=== PATIENT | male | born 1975 | race Caucasian/White ===

== ENCOUNTER 2022-03-12 19:13 | Emergency (ER) | payer BC, SELFPAY ==
[2022-03-12 19:19] VITALS: BP 116/80; PULSE 80; RESP 18; TEMP 36.5; O2SAT 96; BMI 32.1
--- NOTE | 2022-03-12 20:23 | ED.NURSE ---
2015-Pt refused Adacel. Education provided, Pt verbalizes risks of refusal. informed.
--- NOTE | 2022-03-12 20:30 | ED.GENADULT ---
HPI - General Adult General Date Seen: 03/12/22 Chief complaint: Laceration/Wound Stated complaint: RIGHT HAND INJURY/CUT Time Seen by Provider: 03/12/22 19:24 Source: patient History of Present Illness HPI narrative: Patient is a 46-year-old male with a laceration on his right palm sustained by a tool that had strong hinge on it which snapped onto his hand. He has a superficial laceration on the back of his hand as well. He denies any numbness, loss of function. No difficulty using his index finger. Unsure of his last tetanus. No other injuries or complaints. This happened just within the last hour. Related Data Home Medications Medication Instructions Recorded Confirmed No Known Home Medications 03/12/22 03/12/22 Allergies Allergy/AdvReac Type Severity Reaction Status Date / Time No Known Drug Allergies Allergy Verified 03/12/22 19:22 [facility] Social History Smoking Status: Current every day smoker How often do you have a drink containing alcohol: 4 or more times a week AUDIT-C Alcohol total score: 4 Non-prescribed substance use: denies use Exam Narrative: Exam Narrative: Vital signs reviewed. In general, an alert, well-appearing male. Examination of the right hand shows an L-shaped laceration which is 2 cm in total length, in the webspace between the 1st and 2nd fingers. He has full extension and flexion of the 2nd finger, full apposition, adduction, abduction of the thumb. Sensation is intact throughout the hand. He has a small very superficial abrasion over the thenar eminence and an abrasion over the dorsal aspect of the hand between the 1st and 2nd webspace. Skin: Warm dry well perfused. Const: Vital Signs, click to edit/add: Vital Signs - 24 hr 03/12/22 19:19 Temperature 97.7 F Pulse Rate [Right Pulse Oximeter] 80 Respiratory Rate 18 Blood Pressure [Le ft Upper Arm] 116/80 Pulse Oximetry 96 Documenting provider has reviewed patient's vital signs: yes Course Course Hospital Course: Procedure note: The L-shaped laceration on the palmar aspect of the hand was anesthetized using lidocaine with epinephrine. Wound was explored, it extends into the fatty tissues of the hand but I do not see any evidence of injury to deeper structures. No foreign body identified. I closed the wound using 5 0 nylon, a total of 6 superficial simple interrupted sutures were placed. He tolerated this well without immediate complication. A dressing was applied by the opto mechanical technician. Last tetanus was in 2000, we recommended updating this but he declined, saying that he did not want his pertussis or diphtheria updated, he only would agree to have the tetanus updated which is not available as a single vaccination. Suture removal in about 10 days, return for signs of infection. Vital Signs Vital signs: Initial Vital Signs Temperature 97.7 F 03/12/22 19:19 Temperature Source Temporal Artery Scan 03/12/22 19:19 Pulse Rate 80 03/12/22 19:19 Respiratory Rate 18 03/12/22 19:19 Blood Pressure 116/80 03/12/22 19:19 Blood Pressure Mean 92 03/12/22 19:19 Blood Pressure Position Sitting 03/12/22 19:19 Pulse Oximetry 96 03/12/22 19:19 Oxygen Delivery Method 03/12/22 19:19 Vital Signs Temperature 97.7 F 03/12/22 19:19 Pulse Rate 80 03/12/22 19:19 Respiratory Rate 18 03/12/22 19:19 Blood Pressure 116/80 03/12/22 19:19 Pulse Oximetry 96 03/12/22 19:19 Temperature 97.7 F 03/12/22 19:19 Pulse Rate 80 03/12/22 19:19 Respiratory Rate 18 03/12/22 19:19 Blood Pressure 116/80 03/12/22 19:19 Pulse Oximetry 96 03/12/22 19:19 Discharge Plan Discharge Clinical Impression: Laceration of right hand Patient Disposition: Home, Self-Care Condition: Improved Instructions: Laceration (ED) Additional Instructions: Suture removal in about 10 days. Return for signs of infection. Prescriptions: No Action No Known Home Medications 0RF Stand Alone Forms: MyHealth Info Instructions
== END 2022-03-12 20:19 | disposition home or self-care (01) ==
LOC: ED 20:09
PROVIDERS: Emergency Provider Emergency Medicine
DX: S61.411A Laceration without foreign body of right hand, initial encounter (principal); W27.8XXA Contact with other nonpowered hand tool, initial encounter
CPT/HCPCS: 12001; 99283

== ENCOUNTER 2024-10-01 22:30 | Emergency (ER) | payer BC, SELFPAY ==
--- OUTSIDE RECORDS SUMMARY | 2024-10-01 22:32 | XMS_ITS | Clinical Summary ---
Author Organization [facility] Address [address] [address] Care Team Providers Care Seat Installer Name Role Phone Unavailable Primary Care Provider Unavailabl e Source Comments You are receiving this document as you are listed as the primary care provider,follow-up provider, or the patient has been referred to you for consultation.This is in compliance with the Medicare and[facility] E[facility] Incentive Program,which states Providers who transition their patient to another setting of careor provider of care or refers their patient to another provider of care shouldprovide summary care record for each transition of care or referral. True Style Allergies Active Allergy Reactions Criticality Noted Date Comments Varenicline Other, see comments 12/19/2013 Amnesia, Mental status change Medications nicotine ([facility] NICOTINE POLACRILEX) 2 MG gumIndications:To bacco dependence (HRC) Take 1 Each by mouth as needed for Smoking Cessation (Take 1 each by mouth as needed for Smoking cessation.). 100 Each 9 Active nicotine ([employer] NICOTINE) 7 MG/24HR patchIndications: Tobacco dependence (HRC) Apply 1 Patch to skin every 24 hours. 28 Patch 6 9 Active ALBUterol sulfate HFA 108 (90 Base) MCG/ACT inhalerIndication s:Allergy-induced asthma, mild intermittent, uncomplicated (HRC) Inhale 1-2 Puffs every 4 hours as needed for Wheezing. 1 Each 3 Active hydrocortisone, Perianal, (PROCTOSOL-HC) 2.5 % rectal creamIndications: Inflamed Hemorrhoids Insert rectally two times a day. Indications: Inflamed Hemorrhoids 28 g 1 3 Active Active Problems Problem Noted Date Diagnosed Date Pilonidal cyst without abscess 05/21/2023 Pilonidal cyst 10/06/2019 Overview (10/06/2019): Added automatically from request for surgery [id number] Raynaud's phenomenon without gangrene 10/06/2019 Night sweats 10/06/2019 Overview (10/06/2019): [id number], 09/2019 reported soaking night sweats monthly, 2-3x per week moderately severe night sweats - new raynauds symptoms. Workup neg CXR, + JEAN CARLOS 1:160 (nucleolar), + CRP in setting of pilonidal cyst/abscess. Elevated C-reactive protein (CRP) 10/06/2019 Overview (10/06/2019): Needs repeat - CRP 3.7 (in setting of infection pilonidal cyst/abscess) JEAN CARLOS positive 10/06/2019 Overview (10/06/2019): + JEAN CARLOS 1:160 (nucleolar) - checked 09/2019 with new raynauds, night sweat, fatigue, CRP 3.7 (in setting of infection pilonidal cyst/abscess) Mixed hyperlipidemia 02/13/2017 Overview (02/13/2017): 02/13/2017 10 years is 4.31% (using the ACC/AHA ASCVD risk score) based on age 41, male gender, BP 120/84 mm Hg, not on BP medication, total cholesterol 212 mg/dl, HDL 53 mg/dl, diabetes diagnosis not identified, current tobacco use identified. Cardiovascular risk could be reduced with attention to the following, in order of priority: tobacco cessation; weight loss; Routine health maintenance 02/07/2017 Overview (05/28/2019): Reviewed at physical exam 05/28/2019 ASA: NA Obesity: Estimated body mass index is 31.76 kg/m as calculated from the following: Height as of this encounter: 1.854 m (6' 1). Weight as of this encounter: 109.2 kg (240 lb 11.2 oz). Exercise: Recommended daily Smoking cessation: current smoker - cessation counseling Colonoscopy: DUE age 48 - no FHx Prostate: LAKHWINDER and discussed PSA screening - due age 48, No FHx Tobacco dependence 02/08/2016 Overview (04/21/2016): Chantix with ER prior with amnesia. Patch + gum Mild intermittent asthma without complication Overview (04/21/2016): [address] Beth, improvement with bronchodilator - albuterol prn. Symptoms controlled once his dog was out of house. Non morbid obesity due to excess calories 2011 Overview (04/21/2016): Estimated body mass index is 33.87 kg/(m^2) as calculated from the following: Height as of this encounter: 1.884 m (6' 2.17). Weight as of this encounter: 120.203 kg (265 lb). Allergic rhinitis due to animal hair and dander 03/18/2009 Overview (04/21/2016): Flonase prn Resolved Problems Problem Noted Date Diagnosed Date Resolved Date Smoker 07/12/2012 02/08/2016 Asthma 03/18/2009 02/08/2016 Overview (04/11/2017): Asthma NOS Immunizations Immunization Administration Dates Next Due DTaP 07/30/1974 MMR 05/28/1974 PPSV23 (Pneumovax) 07/30/2003 Polio, Unspecified Formulation 07/30/1974 TDAP (BOOSTRIX) 12/19/2013(Deferred: Patient Ref used) Td 08/20/2000 Family History Medical History Relation Name Comments Coronary Artery Disease Father bypa ss Cancer Mother breast CA, leanne ng Cancer, Breast Paternal Aunt 1 Cancer, Breast Paternal Aunt 2 Cancer, Breast Sister 3 living Relation Name Status Comments Father Alive Mother Alive Paternal Aunt 1 Paternal Aunt 2 Sister 1 Alive Sister 2 Alive Sister 3 Social History Tobacco Use Types Packs/Day Years Used Date Smoking Tobacco: Some Days Cigarettes 0.5 11 Smokeless Tobacco: Never Tobacco Cessation:Ready to Q uit: Not Asked; Counseling Given: Not Answered Comments:Smokes 1 cigarette per day Alcohol Use Standard Drinks/Week Comments Yes 3.3 (1 standard drink = 0.6 oz p ure alcohol) 7/week PHQ-2 Answer Date Recorded PHQ-2 Score 0 05/08/2023 Financial Resource Strain Answer Date R ecorded Is it hard for you to pay fo r the very basics like food, housing, medical care or heating? No 05/04/2023 Food Insecurity Answer Date Recorded Does your food run out before you have the money to buy more? No 05/04/2023 Transportation Needs Answer Date Record ed Does a lack of transportatio n keep you from your medical appointments or from getting your medications? No 023 Sex and Gender Information Value Date Recorded Sex Assigned at Not on file Legal Sex Male 7:08 AM CDT Gender Identity Not on file Sexual Orientation Not on file Occupation Industry Job Start Date Job End Date [employer]. Not on file Not on file Not on file Last Filed Vital Signs Vital Sign Reading Time Taken Comments Blood Pressure 129/79 07/16/2023 3:55 PM MERCHANDISE COORDINATOR Pulse 50 07/16/2023 4:00 PM MERCHANDISE COORDINATOR Temperature 36 C (96.8 F) 07/16/2023 2:35 PM MERCHANDISE COORDINATOR Respiratory Rate 19 07/16/2023 4:00 PM MERCHANDISE COORDINATOR Oxygen Saturation 96% 07/16/2023 4:00 PM MERCHANDISE COORDINATOR Inhaled Oxygen Concentration - - Weight 108.9 kg (240 lb) 07/16/2023 2:35 PM MERCHANDISE COORDINATOR Height 203.2 cm (6' 8) 05/21/2023 9:13 AM CDT Body Mass Index 26.37 05/21/2023 9:13 AM CDT Plan of Treatment Health Maintenance Due Date Last Done Comments IPV (Polio) (2 of 3 - 4-dose series) 08/27/1974 07/30/1974 HepB (1) 1992 DTaP/Tdap/Td (2 - Tdap) 08/21/2000 08/20/2000, 07/30 Pneumococcal (2 - PCV) 07/30/2004 07/30/2003 Zoster/Shingles (1 of 2) 2023 COVID-19 Vaccine ( season) 2024 Influenza (#1) 2024 Adult Preventive Visit 05/08/2024 , 05/28/2019, 02/07/2017 PSA Screening Discussion 05/08/2024 05/08/2023 Colonoscopy 07/16/2026 07/16/2023 Cholesterol 05/08/2028 05/08/2023, 01/19, 12/19/2013, Additional history exists HIV Screening (Preventive Services) Completed 05/08/2023, 10/03/2019 Hep C Screening (Preventive Services) Completed 05/08/2023 HepA Aged Out No longer eligi ble based on patient's age to complete this topic Hib Aged Out No longer eligi ble based on patient's age to complete this topic MCV4 Aged Out No longer eligi ble based on patient's age to complete this topic Procedures Procedure Name Priority Date/Time Associated Diagnosis Comments COLONOSCOPY Routine 07/16/2023 3:02 PM MERCHANDISE COORDINATOR Screen for colon cancer PROSTATIC SPECIFIC ANTIGEN(SCREEN) Routine 05/08/2023 1:25 PM CDT Screening for prostate cancer HIV 1/2 AG/AB 4TH GEN Routine 05/08/2023 1:25 PM CDT Screening for HIV (human immunodeficiency virus) HEPATITIS C ANTIBODY, WITH REFLEX Routine 05/08/2023 1:25 PM CDT Need for hepatitis C screening test LIPID PANEL & DIRECT LDL (IF NEEDED) Routine 05/08/2023 1:25 PM CDT Mixed hyperlipidemia (HRC) from Last 3 Months or Most Recently Relevant to Health Maintenance Results * COLONOSCOPY [[id number]] (07/16/2023 3:02 PM MERCHANDISE COORDINATOR) 07/16/2023 3:02 PM MERCHANDISE COORDINATOR Narrative [facility] - 07/16/2023 3:43 PM MERCHANDISE COORDINATOR Instrument Name: [id number] Indications: Screening for colorectal malignant neoplasm Providers: Daisy Kaufman Christiana Baion Patient Profile: Golytely Bowel Prep, Refer to note in patient chart for documentation of history and physical. This is a 48 year old male. Referring MD: Lamont Llamas Medicines: Midazolam 5 mg IV, Fentanyl 200 micrograms IV, Ondansetron 4 mg IV Complications: No immediate complications. Estimated blood loss: Minimal. Procedure: Pre-Anesthesia Assessment: - Prior to the procedure, a History and Physical was performed, and patient medications and allergies were reviewed. The patient's tolerance of previous anesthesia was also reviewed. The risks and benefits of the procedure and the sedation options and risks were discussed with the patient. All questions were answered, and informed consent was obtained. Prior Anticoagulants: The patient has taken no anticoagulant or antiplatelet agents. ASA Grade Assessment: II - A patient with mild systemic disease. After reviewing the risks and benefits, the patient was deemed in satisfactory condition to undergo the procedure. After I obtained informed consent, the scope was passed under direct vision. Prior to sedation, patient identity and procedure was reverified. Throughout the procedure, the patient's blood pressure, pulse, and oxygen saturations were monitored continuously. The [id number] was introduced through the anus and advanced to the terminal ileum. The colonoscopy was performed without difficulty. The patient tolerated the procedure well. The quality of the bowel preparation was good. The terminal ileum, ileocecal valve, appendiceal orifice, and rectum were photographed. Findings: The perianal and digital rectal examinations were normal. The terminal ileum appeared normal. Two flat and sessile polyps were found in the transverse colon. The polyps were 4 to 8 mm in size. These polyps were removed with a cold snare. Resection and retrieval were complete. Estimated blood loss was minimal. Two flat polyps were found in the sigmoid colon. The polyps were 3 to 4 mm in size. These polyps were removed with a cold snare. Resection and retrieval were complete. Estimated blood loss was minimal. Scattered large-mouthed and small-mouthed diverticula were found in the sigmoid colon and descending colon. Non-bleeding internal hemorrhoids were found during retroflexion. The hemorrhoids were small. The exam was otherwise normal throughout the examined colon. Moderate Sedation: Moderate (conscious) sedation was administered by the nurse and supervised by the endoscopist. The following parameters were monitored: oxygen saturation, heart rate, blood pressure, and response to care. Total physician intraservice time was 23 minutes. Impression: - The examined portion of the ileum was normal. - Two 4 to 8 mm polyps in the transverse colon, removed with a cold snare. Resected and retrieved. - Two 3 to 4 mm polyps in the sigmoid colon, removed with a cold snare. Resected and retrieved. - Diverticulosis in the sigmoid colon and in the descending colon. - Small non-bleeding internal hemorrhoids. Recommendation: - Patient has a contact number available for emergencies. The signs and symptoms of potential delayed complications were discussed with the patient. Return to normal activities tomorrow. Written discharge instructions were provided to the patient. - Resume previous diet today. - Continue present medications. - Await pathology results. - Repeat colonoscopy in 3 - 5 years for surveillance. - High fiber diet (>25 gm/day) and low red meat (< 4 servings/week). No need to avoid nuts and seeds, avoidance of NSAIDS use and smoking as well as physical activity would help with diverticulosis. - Avoid straining and constipation. Drinking ample amount of fluid. Preparation H and sitz bath would be recommended if blood when wiping. Increase dietary fiber. Avoid prolonged sitting/straining in the bathroom when having bowel movement. Procedure Code(s): --- Professional --- 84497, PT, Colonoscopy, flexible; with removal of tumor(s), polyp(s), or other lesion(s) by snare technique 28059, 59,PT, Moderate sedation services provided by the same physician or other qualified health farm or ranch animal caretaker performing the diagnostic or therapeutic service that the sedation supports, requiring the presence of an independent trained observer to assist in the monitoring of the patient's level of consciousness and physiological status; initial 15 minutes of intraservice time, patient age 5 years or older [address], PT, Moderate sedation; each additional 15 minutes intraservice time Diagnosis Code(s): --- Professional --- Z12.11, Encounter for screening for malignant neoplasm of colon K64.8, Other hemorrhoids K63.5, Polyp of Colon K57.30, Diverticulosis of large intestine without perforation or abscess without bleeding CPT copyright 2021 [employer]. All rights reserved. The codes documented in this report are preliminary and upon orthopedic coder review may be revised to meet current compliance requirements. Attending Participation: Charanderson Larsen, 07/16/2023 3:43:21 PM Number of Addenda: 0 Note Initiated On: 07/16/2023 3:02 PM Procedure Note Janay Larsen MD - 07/16/2023 Instrument Name: [id number] Indications: Screening for colorectal malignant neoplasm Providers: Daisy Kaufman Christiana Baion Patient Profile: Golytely Bowel Prep, Refer to note in patient chart for documentation of history and physical. This is a 48 year old male. Referring MD: Lamont Llamas Medicines: Midazolam 5 mg IV, Fentanyl 200 micrograms IV, Ondansetron 4 mg IV Complications: No immediate complications. Estimated blood loss: Minimal. Procedure: Pre-Anesthesia Assessment: - Prior to the procedure, a History and Physical was performed, and patient medications and allergies were reviewed. The patient's tolerance of previous anesthesia was also reviewed. The risks and benefits of the procedure and the sedation options and risks were discussed with the patient. All questions were answered, and informed consent was obtained. Prior Anticoagulants: The patient has taken no anticoagulant or antiplatelet agents. ASA Grade Assessment: II - A patient with mild systemic disease. After reviewing the risks and benefits, the patient was deemed in satisfactory condition to undergo the procedure. After I obtained informed consent, the scope was passed under direct vision. Prior to sedation, patient identity and procedure was reverified. Throughout the procedure, the patient's blood pressure, pulse, and oxygen saturations were monitored continuously. The [id number] was introduced through the anus and advanced to the terminal ileum. The colonoscopy was performed without difficulty. The patient tolerated the procedure well. The quality of the bowel preparation was good. The terminal ileum, ileocecal valve, appendiceal orifice, and rectum were photographed. Findings: The perianal and digital rectal examinations were normal. The terminal ileum appeared normal. Two flat and sessile polyps were found in the transverse colon. The polyps were 4 to 8 mm in size. These polyps were removed with a cold snare. Resection and retrieval were complete. Estimated blood loss was minimal. Two flat polyps were found in the sigmoid colon. The polyps were 3 to 4 mm in size. These polyps were removed with a cold snare. Resection and retrieval were complete. Estimated blood loss was minimal. Scattered large-mouthed and small-mouthed diverticula were found in the sigmoid colon and descending colon. Non-bleeding internal hemorrhoids were found during retroflexion. The hemorrhoids were small. The exam was otherwise normal throughout the examined colon. Moderate Sedation: Moderate (conscious) sedation was administered by the nurse and supervised by the endoscopist. The following parameters were monitored: oxygen saturation, heart rate, blood pressure, and response to care. Total physician intraservice time was 23 minutes. Impression: - The examined portion of the ileum was normal. - Two 4 to 8 mm polyps in the transverse colon, removed with a cold snare. Resected andretrieved. - Two 3 to 4 mm polyps in the sigmoid colon, removed with a cold snare. Resected andretrieved. - Diverticulosis in the sigmoid colon and in the descending colon. - Small non-bleeding internal hemorrhoids. Recommendation: - Patient has a contact number available for emergencies. The signs and symptoms of potential delayed complications were discussed with the patient. Return to normal activities tomorrow. Written discharge instructions were provided to the patient. - Resume previous diet today. - Continue present medications. - Await pathology results. - Repeat colonoscopy in 3 - 5 years for surveillance. - High fiber diet (>25 gm/day) and low red meat (< 4 servings/week). No need to avoid nuts and seeds, avoidance of NSAIDS use and smoking as well as physical activity would help with diverticulosis. - Avoid straining and constipation. Drinking ample amount of fluid. Preparation H and sitz bath would be recommended if blood when wiping. Increase dietary fiber. Avoid prolonged sitting/straining in the bathroom when having bowel movement. Procedure Code(s): --- Professional --- 40841, PT, Colonoscopy, flexible; with removal of tumor(s), polyp(s), or other lesion(s) by snare technique 93298, 59,PT, Moderate sedation services provided by the same physician or other qualified health farm or ranch animal caretaker performing the diagnostic or therapeutic service that the sedation supports, requiring the presence of an independent trained observer to assist in the monitoring of the patient's level of consciousness and physiological status; initial 15 minutes of intraservice time, patient age 5 years or older [address], PT, Moderate sedation; each additional 15 minutes intraservice time Diagnosis Code(s): --- Professional --- Z12.11, Encounter for screening for malignant neoplasm of colon K64.8, Other hemorrhoids K63.5, Polyp of Colon K57.30, Diverticulosis of large intestine without perforation or abscess without bleeding CPT copyright 2021 [employer]. All rights reserved. The codes documented in this report are preliminary and upon orthopedic coder review may be revised to meet current compliance requirements. Attending Participation: Janay Larsen, 07/16/2023 3:43:21 PM Number of Addenda: 0 Note Initiated On: 07/16/2023 3:02 PM Janay Larsen MD DIGESTIVE CARE Fi nal Result [facility] [place], [place] * HIV 1/2 Ag/Ab 4th Generation (05/08/2023 1:25 PM CDT) HIV 1/2 Antigen/Antib moon (4th generation) Negative (Non Reactive) Negative (Non Reactive) 05/08/2023 9:30 PM CDT [facility] Comment:HIV-1 p24 Antigen an d HIV-1/HIV-2 Antibody not detected Blood Venipuncture / Unknown 05/08/2023 1:25 PM CDT 05/08/2023 1:25 PM CDT Lamont Llamas TUBE DRAWER, SPORTS TEACHER LAB_1 Final Result [facility] [address] * (ABNORMAL) Lipid Panel & Direct LDL (if Needed) (05/08/2023 1:25 PM CDT) Cholesterol 242(H) 0 - 199 mg/dL 05/08/2023 3:09 PM CDT [facility] Triglyceride 110 <=149 mg/dL 05/08/2023 3:09 PM CDT [facility] HDL Cholesterol 70 >=40 mg/dL 3 3:09 PM CDT [facility] LDL, Calculated 150(H) <130 mg/dL 3:09 PM CDT [facility] Non HDL Chol, Calculated 172(H) <=159 mg/dL 05/08/2023 3:09 PM CDT [facility] Cholesterol/HDL Ratio 3.5 05/08/2023 3:09 PM T [facility] Hours Fasting 0.1 8 - 12 Hours 05/08/2023 3:09 PM CDT [facility] Comment:Lab unable to obtain patient's fasting status at time of specimen collection. Blood Venipuncture / Unknown 05/08/2023 1:25 PM CDT 05/08/2023 1:25 PM CDT Lamont Llamas APRN, [facility] LAB_1 Final Result Performing Organization Address City/[facility]/ZIP Co de Phone Number [facility] [address] [place] [address], [facility] [phone] * Prostatic Specific Antigen (Screen) (05/08/2023 1:25 PM CDT) Pathologist [facility] Prostatic Specific Antigen 0.4 0.0 - 4.0 ng/mL 05/08/2023 9:32 PM CDT [facility] Blood Venipuncture / Unknown 05/08/2023 1:25 PM CDT 05/08/2023 1:25 PM CDT Narrative [facility] - 05/08/2023 9:32 PM CDT The [employer] PSA Chemiluminescent immunoassay is used. Results obtained with different test methods or kits cannot be used interchangeably. Lamont Llamas APRN, SPORTS TEACHER LAB_1 Final Result [facility] [address] [place], [place] [id number] [place] [address] * Hepatitis C Antibody, with Reflex (05/08/2023 1:25 PM CDT) Pathologist [facility] Hepatitis C Antibody Negative (Non Reactive) Negative (Non Reactive) 05/08/2023 9:30 PM CDT [facility] Comment:Antibodies to HCV no t detected. Does not exclude the possiblity of exposure to HCV. Blood Venipuncture / Unknown 05/08/2023 1:25 PM CDT 05/08/2023 1:25 PM CDT Lamont Llamas APRN, SPORTS TEACHER LAB_1 Final Result [facility] [address] from Last 3 Months or Most Recently Relevant to Health Maintenance Insurance BCBS OUT OF STATE BCBS OUT OF STATE BCBS OUT OF STATE BCBS OUT OF STATE
--- OUTSIDE RECORDS SUMMARY | 2024-10-01 22:32 | XMS_ITS | Clinical Summary ---
Author Organization [facility] Address [address] [place] [address] Care Team Providers Care Mining Engineering Technologist Name Role Phone [facility], [facility] Primary Care Provider [phone] Allergies Active Allergy Reactions Criticality Noted Date Comments Varenicline Other (See Comments) 12/19/2013 Amnesia, Mental status change Medications ADVAIR DISKUS 250-50 MCG/DOSE IN MISC 1 inhalation q 12h 1 prn 3 Active Additional Information Patient not taking.Reported on 12/14/2022 Active Problems Problem Noted Date Diagnosed Date Asthma 07/30/2003 Overview (05/20/2015): Problem list name updated by automated process. Provider to review Immunizations Name Administration Dates Next Due Pneumococcal 23 valent 07/30/2003 Family History Medical History Relation Comments Heart Disease Father Relation Status Comments Father Alive Social History Tobacco Use Types Packs/Day Years Used Date Smoking Tobacco: Former Cigarettes 0.5 22.1 2 001 - 09/2022 Smokeless Tobacco: Never Tobacco Cessation:Counseling Given: Not Answered Alcohol Use Standard Drinks/Week Comments Yes 0 (1 standard drink = 0.6 oz pur e alcohol) 4-5 drinks per week Adolescent Education Answer Date Record ed Getting School Help Needed Not on file 05/27 Sex and Gender Information Value Date Recorded Sex Assigned at Not on file Legal 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 Male 3:49 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 Gender Identity Not on file Sexual Orientation Not on file Last Filed Vital Signs Vital Sign Reading Time Taken Comments Blood Pressure 130/88 12/14/2022 12:41 PM CDT Pulse 58 12/14/2022 12:41 PM CDT Temperature 36.7 C (98 F) 09/11/2022 8:59 PM SAGGER MAKER Respiratory Rate 18 09/11/2022 10:39 PM SAGGER MAKER Oxygen Saturation 97% 12/14/2022 12:41 PM CDT Inhaled Oxygen Concentration - - Weight 111.1 kg (245 lb) 12/14/2022 12:41 PM CDT Height 188 cm (6' 2) 12/14/2022 12:41 PM CDT Body Mass Index 31.46 12/14/2022 12:41 PM CDT Plan of Treatment Health Maintenance Due Date Last Done Comments ADVANCE CARE PLANNING 1973 ANNUAL REVIEW OF HM ORDERS 1973 ASTHMA ACTION PLAN 1973 ASTHMA [address] TEST 1973 [address] COLONOGRAPHY 1973 FIT 1973 FLEX SIG 1973 sDNA (Cologuard) 1973 COLONOSCOPY 1983 COLORECTAL CANCER SCREENING 1983 HIV SCREENING 1988 HEPATITIS C SCREENING 1991 HEPATITIS B IMMUNIZATION (1 of 3 - 19+ 3-dose series) 1992 DTAP/TDAP/TD IMMUNIZATION (2 - Tdap) 08/21/2000 08/20/2000, 07/30/1974 Pneumococcal Vaccine: 50+ Years (2 of 2 - PCV) 07/30/2004 07/30/2003 LIPID 2013 YEARLY PREVENTIVE VISIT 05/28/2020 05/28/20 19, 02/07/2017 LUNG CANCER SCREENING 2023 ZOSTER IMMUNIZATION (1 of 2) 2023 COVID-19 Vaccine (1 - 2023-2 5 season) 2024 INFLUENZA VACCINE (#1) 2024 PHQ-2 (once per calendar year) 2024 GLUCOSE 09/11/2025 09/11/2022 RSV VACCINE (1 - 1-dose 75+ series) 2048 HPV IMMUNIZATION Aged Out No longer e ligible based on patient's age to complete this topic MENINGITIS IMMUNIZATION Aged Out No l onger eligible based on patient's age to complete this topic RSV MONOCLONAL ANTIBODY Aged Out No l onger eligible based on patient's age to complete this topic Procedures Procedure Name Priority Date/Time Associated Diagnosis Comments BASIC METABOLIC PANEL STAT 09/11/2022 9:49 PM SAGGER MAKER from Last 3 Months or Most Recently Relevant to Health Maintenance Results * (ABNORMAL) Basic metabolic panel (09/11/2022 9:49 PM SAGGER MAKER) Sodium 135(L) 136 - 145 mmol/L 09/11/2022 10:34 PM [facility] Potassium 4.0 3.4 - 5.3 mmol/L 09/11/2022 10:34 PM [facility] Comment:Specimen slightly he molyzed, potassium may be falsely elevated. Chloride 98 98 - 107 mmol/L 09/11/2022 10:34 PM [facility] Carbon Dioxide (CO2) 26 22 - 29 mmol/L 09/11/2022 10:34 PM [facility] Anion Gap 11 7 - 15 mmol/L 09/11/2022 10:34 PM [facility] Urea Nitrogen 12.1 6.0 - 20.0 mg/dL 09/11/2022 10:34 PM [facility] Creatinine 0.93 0.67 - 1.17 mg/dL 09/11/2022 10:34 PM [facility] Calcium 8.7 8.6 - 10.0 mg/dL 09/11/2022 10:34 PM [facility] Glucose 96 70 - 99 mg/dL 09/11/2022 10:34 PM [facility] GFR Estimate >90 >60 mL/min/1.7 3m2 09/11/2022 10:34 PM [facility] Comment:eGFR calculated usin g 2020 CKD-EPI equation. Blood STRUCTURE OF RIGHT UPPER LIMB / Unknown Venipuncture / Unknown 09/11/2022 9:49 PM SAGGER MAKER 09/11/2022 9:55 PM SAGGER MAKER Kyree Aldridge MD LAB - BLOOD ORDERABLES F inal Result LABORATORY [facility] [address] [facility] Lab (1st floor, no room number) [place] [address], [place] [phone] from Last 3 Months or Most Recently Relevant to Health Maintenance Insurance BC OUT OF STATE Care Teams Mining Engineering Technologist Relationship Specialty Start Date End Date Pediatric[address] [address] PCP - General 09/18/22
--- OUTSIDE RECORDS SUMMARY | 2024-10-01 22:32 | XMS_ITS | Encounter Summary ---
Author Organization [facility] Address [address] [place] [address] Care Team Providers Care Tentering Machine Off Bearer Name Role Phone Artemio Godinez Primary Care Provider Unavailable Pediatrics, [facility] Primary Care Provider [phone] Mary Hazel MD Unavailable Yemi Medrano MD Unavailable [phone] Mary Hazel MD Unavailable [phone] Encounter Details Date Type Department Care Team (Late st Contact Info) Description 09/11/2022 External Order Results [facility] [address] [place] [address] Outside, Provider Social History Tobacco Use Types Packs/Day Years Used Date Smoking Tobacco: Never Assessed Sex and Gender Information Value Date Recorded Sex Assigned at Not on file 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 No / Unsure 09/11/2022 8:51 PM HEADER MACHINE OPERATOR documented as of this encounter Plan of Treatment Not on file documented as of this encounter Visit Diagnoses Not on filedocumented in this encounter Care Teams Tentering Machine Off Bearer Relationship Specialty Start Date End Date Artemio Godinez PCP - General Family Practice 09/11/22 09/17/22 Pediatrics, [address] [place] [phone] PCP - General 09/18/22 Mary Hazel MD [address] [address] Assigned Heart and Vascular Provider 09/23/22 12/22/22 Yemi Medrano MD [address] [facility] [address] [address] Assigned Heart and Vascular Provider 12/23/22 05/04/23 Mary Hazel MD [address] [address] Assigned Heart and Vascular Provider 05/05/23 04/10/24 documented as of this encounter
[2024-10-01 22:39] VITALS: BP 135/84; PULSE 55; RESP 16; TEMP 36.4; O2SAT 100; BMI 32.1
--- OUTSIDE RECORDS SUMMARY | 2024-10-01 23:06 | XMS_ITS | Clinical Summary ---
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 Gender Identity Not on file Sexual Orientation Not on file Last Filed Vital Signs Vital Sign Reading Time Taken Comments Blood Pressure 130/88 12/14/2022 12:41 PM CDT Pulse 58 12/14/2022 12:41 PM CDT Temperature 36.7 C (98 F) 09/11/2022 8:59 PM DIESEL ELECTRICIAN Respiratory Rate 18 09/11/2022 10:39 PM DIESEL ELECTRICIAN Oxygen Saturation 97% 12/14/2022 12:41 PM CDT [...] BASIC METABOLIC PANEL STAT 09/11/2022 9:49 PM DIESEL ELECTRICIAN from Last 3 Months or Most Recently Relevant to Health Maintenance Results * (ABNORMAL) Basic metabolic panel (09/11/2022 9:49 PM DIESEL ELECTRICIAN) Sodium 135(L) 136 - 145 mmol/L 09/11/2022 10:34 PM [facility] Potassium 4.0 3.4 - 5.3 mmol/L 09/11/2022 10:34 PM [facility] Comment:Specimen slightly he molyzed, potassium may be falsely elevated. Chloride 98 98 - 107 mmol/L 09/11/2022 10:34 PM [facility] Carbon Dioxide (CO2) 26 22 - 29 mmol/L 09/11/2022 10:34 PM [facility] Anion Gap 11 7 - 15 mmol/L 09/11/2022 10:34 PM [facility] Urea Nitrogen 12.1 6.0 - 20.0 mg/dL 09/11/2022 10:34 PM [facility] Creatinine 0.93 0.67 - 1.17 mg/dL 09/11/2022 10:34 PM [facility] Calcium 8.7 8.6 - 10.0 mg/dL 09/11/2022 10:34 PM [facility] Glucose 96 70 - 99 mg/dL 09/11/2022 10:34 PM [facility] GFR Estimate >90 >60 mL/min/1.7 3m2 09/11/2022 10:34 PM [facility] Comment:eGFR calculated usin g 2020 CKD-EPI equation. Blood STRUCTURE OF RIGHT UPPER LIMB / Unknown Venipuncture / Unknown 09/11/2022 9:49 PM DIESEL ELECTRICIAN 09/11/2022 9:55 PM DIESEL ELECTRICIAN Kyree Aldridge MD LAB - BLOOD ORDERABLES F inal Result LABORATORY [facility] [address] [facility] Lab (1st floor, no room number) [place] [address], [facility] [phone] from Last 3 Months or Most Recently Relevant to Health Maintenance Insurance BC OUT OF STATE Care Teams Production Clerks Supervisor Relationship Specialty Start Date End Date [address] [address] PCP - General 09/18/22
--- OUTSIDE RECORDS SUMMARY | 2024-10-01 23:06 | XMS_ITS | Encounter Summary ---
Author Organization [facility] Address [address] [place] [address] Care Team Providers Care Isotope Technician Name Role Phone Artemio Godinez Primary Care Provider Unavailable Pediatrics, [facility] Primary Care Provider [phone] Mary Hazel MD Unavailable Yemi Medrano MD Unavailable [phone] Mary Hazel MD Unavailable [phone] Encounter Details Date Type Department Care Team (Late st Contact Info) Description 09/11/2022 External Order Results 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 No / Unsure 09/11/2022 8:51 PM TEA TREE FARM WORKER documented as of this encounter Plan of Treatment Not on file documented as of this encounter Visit Diagnoses Not on filedocumented in this encounter Care Teams Isotope Technician Relationship Specialty Start Date End Date Artemio Godinez PCP - General Family Practice 09/11/22 09/17/22 Pediatrics, [address] [place] [phone] PCP - General 09/18/22 Mary Hazel MD [address] [address] Assigned Heart and Vascular Provider 09/23/22 12/22/22 Yemi Medrano MD [address] [facility] [address] [address] Assigned Heart and Vascular Provider 12/23/22 05/04/23 Mary Hazel MD [address] [address] Assigned Heart and Vascular Provider 05/05/23 04/10/24 documented as of this encounter
--- OUTSIDE RECORDS SUMMARY | 2024-10-01 23:06 | XMS_ITS | Clinical Summary ---
Author Organization [facility] Address [address], [place] [address] Care Team Providers Care Sample Mounter Name Role Phone Unavailable Primary Care Provider Unavailabl e Source Comments You are receiving this document as you are listed as the primary care provider,follow-up provider, or the patient has been referred to you for consultation.This is in compliance with the Medicare and[facility] Hospital[facility] EHR Incentive Program,which states Providers who transition their patient to another setting of careor provider of care or refers their patient to another provider of care shouldprovide summary care record for each transition of care or referral. [employer] Allergies Active Allergy Reactions Criticality Noted Date [...] (10/06/2019): Added automatically from request for surgery [id number] Raynaud's phenomenon without gangrene 10/06/2019 Night sweats 10/06/2019 Overview (10/06/2019): 4992-1553, 09/2019 reported soaking night sweats monthly, 2-3x [...] asthma without complication Overview (04/21/2016): 2005 Dx Food And Bever[employer] Order Clerk Dr Beth, improvement with bronchodilator - albuterol [...] Comments Blood Pressure 129/79 07/16/2023 3:55 PM TEACHER TUTOR Pulse 50 07/16/2023 4:00 PM TEACHER TUTOR Temperature 36 C (96.8 F) 07/16/2023 2:35 PM TEACHER TUTOR Respiratory Rate 19 07/16/2023 4:00 PM TEACHER TUTOR Oxygen Saturation 96% 07/16/2023 4:00 PM TEACHER TUTOR Inhaled Oxygen Concentration - - Weight 108.9 kg (240 lb) 07/16/2023 2:35 PM TEACHER TUTOR Height 203.2 cm (6' 8) 05/21/2023 9:13 [...] Diagnosis Comments COLONOSCOPY Routine 07/16/2023 3:02 PM TEACHER TUTOR Screen for colon cancer PROSTATIC SPECIFIC ANTIGEN(SCREEN) [...] Relevant to Health Maintenance Results * COLONOSCOPY [[id number]] (07/16/2023 3:02 PM TEACHER TUTOR) 07/16/2023 3:02 PM TEACHER TUTOR Narrative GI ([facility]) - 07/16/2023 3:43 PM TEACHER TUTOR Instrument Name: [id number] Indications: Screening for colorectal [...] and oxygen saturations were monitored continuously. The CF-[id number] was introduced through the anus and advanced [...] bowel movement. Procedure Code(s): --- Professional --- 34308, PT, Colonoscopy, flexible; with removal of tumor(s), polyp(s), or other lesion(s) by snare technique 82886, 59,PT, Moderate sedation services provided by the same physician or other qualified health health and social care teacher performing the diagnostic or therapeutic service that the sedation supports, requiring the presence of an independent trained observer to assist in the monitoring of the patient's level of consciousness and physiological status; initial 15 minutes of intraservice time, patient age 5 years or older [address], PT, Moderate sedation; each additional 15 minutes intraservice time Diagnosis Code(s): --- Professional --- Z12.11, Encounter for screening for malignant neoplasm of colon K64.8, Other hemorrhoids K63.5, Polyp of Colon K57.30, Diverticulosis of large intestine without perforation or abscess without bleeding CPT copyright 2021 [employer]. All rights reserved. The codes documented in this report are preliminary and upon professional fee coder review may be revised to meet [...] and oxygen saturations were monitored continuously. The CF-[id number] was introduced through the anus and advanced [...] bowel movement. Procedure Code(s): --- Professional --- 25069, PT, Colonoscopy, flexible; with removal of tumor(s), polyp(s), or other lesion(s) by snare technique 24019, 59,PT, Moderate sedation services provided by the same physician or other qualified health health and social care teacher performing the diagnostic or therapeutic service that the sedation supports, requiring the presence of an independent trained observer to assist in the monitoring of the patient's level of consciousness and physiological status; initial 15 minutes of intraservice time, patient age 5 years or older [address], PT, Moderate sedation; each additional 15 minutes intraservice time Diagnosis Code(s): --- Professional --- Z12.11, Encounter for screening for malignant neoplasm of colon K64.8, Other hemorrhoids K63.5, Polyp of Colon K57.30, Diverticulosis of large intestine without perforation or abscess without bleeding CPT copyright 2021 [employer]. All rights reserved. The codes documented in this report are preliminary and upon professional fee coder review may be revised to meet current compliance requirements. Attending Participation: Janay Larsen, 07/16/2023 3:43:21 PM Number of Addenda: 0 Note Initiated On: 07/16/2023 3:02 PM Janay Larsen MD DIGESTIVE CARE Fi nal Result [facility] ([facility]) [place], [place] * HIV 1/2 Ag/Ab 4th Generation (05/08/2023 1:25 PM CDT) HIV 1/2 Antigen/Antib moon (4th generation) Negative (Non Reactive) Negative (Non Reactive) 05/08/2023 9:30 PM CDT [facility] Comment:HIV-1 p24 Antigen an d HIV-1/HIV-2 Antibody not detected Blood Venipuncture / Unknown 05/08/2023 1:25 PM CDT 05/08/2023 1:25 PM CDT Lamont Llamas CLINICAL APPLICATIONS MANAGER, MARKETING OPERATIONS ANALYST LAB_1 Final Result [facility] [address] * (ABNORMAL) Lipid Panel & Direct LDL (if Needed) (05/08/2023 1:25 PM CDT) Cholesterol 242(H) 0 - 199 mg/dL 05/08/2023 3:09 PM CDT [facility] Triglyceride 110 <=149 mg/dL 05/08/2023 3:09 PM CDT [facility] HDL Cholesterol 70 >=40 mg/dL 3 3:09 PM CDT [facility] LDL, Calculated 150(H) <130 mg/dL 3:09 PM CDT [facility] Non HDL Chol, Calculated 172(H) <=159 mg/dL 05/08/2023 3:09 PM CDT [facility] Cholesterol/HDL Ratio 3.5 05/08/2023 3:09 PM T [facility] Hours Fasting 0.1 8 - 12 Hours 05/08/2023 3:09 PM CDT [facility] Comment:Lab unable to obtain patient's fasting status at time of specimen collection. Blood Venipuncture / Unknown 05/08/2023 1:25 PM CDT 05/08/2023 1:25 PM CDT Lamont Llamas APRN, [facility] LAB_1 Final Result Performing Organization Address City/[facility]/ZIP Co de Phone Number [facility] [address] [place] [address], [facility] [phone] * Prostatic Specific Antigen (Screen) (05/08/2023 1:25 PM CDT) Pathologist [facility] Prostatic Specific Antigen 0.4 0.0 - 4.0 ng/mL 05/08/2023 9:32 PM CDT [facility] Blood Venipuncture / Unknown 05/08/2023 1:25 PM CDT 05/08/2023 1:25 PM CDT Narrative [facility] - 05/08/2023 9:32 PM CDT The Farrell PSA Chemiluminescent immunoassay is used. Results obtained with different test methods or kits cannot be used interchangeably. Lamont Lalmas APRN, MARKETING OPERATIONS ANALYST LAB_1 Final Result [facility] [address] [place], [place] [id number] [place] [address] * Hepatitis C Antibody, with Reflex (05/08/2023 1:25 PM CDT) Pathologist [facility] Hepatitis C Antibody Negative (Non Reactive) Negative (Non Reactive) 05/08/2023 9:30 PM CDT [facility] Comment:Antibodies to HCV no t detected. Does not exclude the possiblity of exposure to HCV. Blood Venipuncture / Unknown 05/08/2023 1:25 PM CDT 05/08/2023 1:25 PM CDT Lamont Llamas APRN, MARKETING OPERATIONS ANALYST LAB_1 Final Result [facility] [address] from Last 3 Months or Most Recently Relevant to Health Maintenance Insurance BCBS OUT OF STATE BCBS OUT OF STATE BCBS OUT OF STATE BCBS OUT OF STATE
[2024-10-01] MEDS: TETANUS/DIPHTH/PERTUSSIS 0.5 ML SYRINGE IM (23:07)
--- NOTE | 2024-10-01 23:26 | ED.ANIMALBIT ---
HPI - Animal Bite General Date Seen: 10/01/24 Chief Complaint: Animal Bite Stated Complaint: R hand swollen, infected Time Seen by Provider: 10/01/24 22:44 Source: patient Mode of arrival: ambulatory Limitations: no limitations History of Present Illness HPI narrative: Patient is being seen for a right hand dog bite, was his own dog, that bit him, it is a lab reducible, this was yesterday morning and dog is full vaccination for rabies. It is red, he has not had fevers chills, but he is worried about possible infection. He is right-hand dominant. Denies any numbness tingling weakness, history of diabetes or any other immunosuppressive diseases. complaint: animal bite Onset (ago): day(s) Animal: dog Description of animal: household pet and immunizations UTD Mechanism: bite Location: other Pain description: burning Severity: mild Context: playing with animal Associated symptoms: none Related Data Patient tetanus UTD: No Home Medications ?Medication ?Instructions ?Recorded ?Confirmed No Known Home Medications 03/12/22 03/12/22 Allergies Allergy/AdvReac Type Severity Reaction Status Date / Time No Known Drug Allergies Allergy Verified 10/01/24 22:42 Review of Systems Status of ROS: Reports: 10 or more systems reviewed and unremarkable except as noted in History and below PFSH PFSH Social History Smoking Status: Current every day smoker How often do you have a drink containing alcohol: 4 or more times a week AUDIT-C Alcohol total score: 4 Non-prescribed substance use: denies use Exam Narrative: Exam Narrative: On examination in room 4, there is redness on the dorsum of his hand between his 3rd and 4th fingers, in the webspace there is a small bite victor hugo, no discharge noted, the redness is on the skin, coming up into his wrist, I did outline this, it is not on the palm at all he has full extension of his fingers and full flexion of his fingers, of all the D IP and PIP and MCP joints. No normal cap refill and just mild swelling. Const: Vital Signs, click to edit/add: Vital Signs - 24 hr 10/01/24 22:39 Temperature 97.6 F Pulse Rate [Right Pulse Oximeter] 55 L Respiratory Rate 16 Blood Pressure [Ri ght Upper Arm] 135/84 Pulse Oximetry 100 Oxygen Delivery Me thod Room Air Documenting provider has reviewed patient's vital signs: yes Course Vital Signs Vital signs: Initial Vital Signs Temperature 97.6 F 10/01/24 22:39 Temperature Source Temporal Artery Scan 10/01/24 22:39 Pulse Rate 55 L 10/01/24 22:39 Pulse Rhythm Regular 10/01/24 22:39 Pulse Strength 3+ Normal 10/01/24 22:39 Respiratory Rate 16 10/01/24 22:39 Blood Pressure 135/84 10/01/24 22:39 Blood Pressure Mean 101 10/01/24 22:39 Blood Pressure Position Sitting 10/01/24 22:39 Pulse Oximetry 100 10/01/24 22:39 Oxygen Delivery Method Room Air 10/01/24 22:39 Vital Signs Temperature 97.6 F 10/01/24 22:39 Pulse Rate 55 L 10/01/24 22:39 Respiratory Rate 16 10/01/24 22:39 Blood Pressure 135/84 10/01/24 22:39 Pulse Oximetry 100 10/01/24 22:39 Oxygen Delivery Method Room Air 10/01/24 22:39 Temperature 97.6 F 10/01/24 22:39 Pulse Rate 55 L 10/01/24 22:39 Respiratory Rate 16 10/01/24 22:39 Blood Pressure 135/84 10/01/24 22:39 Pulse Oximetry 100 10/01/24 22:39 Oxygen Delivery Method Room Air 10/01/24 22:39 Medications Administered Medications: Discontinued Medications Generic Name Dose Route Start Last Admin Trade Name Freq PRN Reason Stop Dose Admin Diphtheria/Tetanus/Acell Pertussis 0.5 ml 10/01/24 22:59 10/01/24 23:07 Tetanus/Diphth/Pertussis 0.5 Ml Syringe IM 10/01/24 23:00 0.5 ml .ONCE ONE Administration MDM - Animal Bite MDM Narrative Medical decision making narrative: I think this is more of a cellulitic type infection, I do not think it is to the tendons, we should however put him on antibiotics, he should limit use of his hand, I talked to him about putting him in his splint, and also a sling but we will try this without this at this point I would like him followed up in 48 hours for recheck to see how he is doing we will use Augmentin, I warned him about antibiotic associated diarrhea with this. Increasing marked increase of pain, with moving his fingers around, or fevers chills or the redness climbing up his arm he should come back and be seen. Differential Diagnosis Differential diagnosis: Likely bite by animal, cat bite, dog bite and rabies contact Medical Records Attestation: I reviewed the patient's medical records. Discharge Plan Discharge Clinical Impression: Dog bite, Cellulitis Patient Disposition: Home w/ Parent or Adult Condition: Stable Instructions: Animal Bite (ED), Cellulitis (ED) Additional Instructions: Home rest, limited use of right hand, please do not hanging down as it will cause the redness to worsen, I marked it on there please be seen in 48 hours to check on the redness( regular Clinic is fine) , increasing pain, when you move your fingers, then it is gone anterior tendons need to come back to the and be seen. Lots of probiotics with the antibiotics, Activity Level: Light activity Discharge Diet: Regular Prescriptions: No Action No Known Home Medications Follow Up/Referrals: Provider,Not a Local [Primary Care Provider] - Stand Alone Forms: Reactivityth Info Instructions
== END 2024-10-01 23:14 | disposition home or self-care (01) ==
PROVIDERS: Emergency Provider Family Medicine
DX: S61.451A Open bite of right hand, initial encounter (principal); L03.113 Cellulitis of right upper limb; W54.0XXA Bitten by dog, initial encounter
CPT/HCPCS: 90471; 90715; 99283; 99284